=== PATIENT | female | born 1950 ===

== ENCOUNTER 2024-07-18 15:52 | Outpatient (REF) | payer MEDICARE, BC, SELFPAY ==
[2024-07-18 15:08] LABS: Source Nasal/Nares
[2024-07-18 16:39] LABS: COVID-19 PCR POSITIVE (Negative)
== END 2024-07-18 15:53 | disposition home or self-care (01) ==
LOC: LBN 15:52
PROVIDERS: Visit Provider Physician Assistant Medical
DX: J06.9 Acute upper respiratory infection, unspecified (principal)
CPT/HCPCS: 87635